=== PATIENT | male | born 1970 | race Caucasian/White ===

== ENCOUNTER 2017-11-24 05:03 | Emergency (ER) | payer SELFPAY ==
[~2017-11-24] VITALS: Ht 180.3 cm; Wt 127.0 kg
[2017-11-24] MEDS ORDERED: BACITRACIN TOP OINT 1 UD PKG TOP ONE (07:00)
[2017-11-24] MEDS ORDERED: LIDOCAINE 1% (LOCAL ANESTH.) PF 5ml SDV ID ONE (07:00)
[2017-11-24] MEDS ORDERED: LIDOCAINE 1%HCL (LOCAL ANESTH) 10 ML MDV ONE (07:28)
[2017-11-24] MEDS ORDERED: cefTRIAXone SOD 1,000 MG VL IM ONE (08:45)
[2017-11-24] MEDS ORDERED: HYDROcodone-ACET 5/325MG TAB PO ONE (09:00)
[2017-11-24 09:04] VITALS: BP 118/63
== END 2017-11-24 09:10 | disposition home or self-care (01) ==
LOC: ER 05:03
DX: S81.811A Laceration without foreign body, right lower leg, initial encounter (principal); L03.115 Cellulitis of right lower limb; Z88.2 Allergy status to sulfonamides; Z88.6 Allergy status to analgesic agent; Z88.8 Allergy status to other drugs, medicaments and biological substances; X58.XXXA Exposure to other specified factors, initial encounter; Y93.89 Activity, other specified; Y99.8 Other external cause status; Y92.89 Other specified places as the place of occurrence of the external cause
CPT/HCPCS: 12034; 73590; 96372; 99284; J0696; J2001